=== PATIENT | female | born 1960 | race Caucasian/White ===

== ENCOUNTER 2016-10-25 10:00 | Emergency (ER) | payer OTHER ==
[~2016-10-25] VITALS: Ht 165.1 cm; Wt 90.7 kg
[2016-10-25] MEDS ORDERED: FLUORESCEIN SODIUM 1 MG STRIP OP ONE (10:30)
--- NOTE | 2016-10-25 10:30 | NUR ---
called dr. minaya for eye consult.
[2016-10-25] MEDS ORDERED: FLUORESCEIN SODIUM 1 MG STRIP ONE (10:32)
--- NOTE | 2016-10-25 11:00 | NUR ---
dr. minaya called back and talked to dr. hairston. pt wii be follow up with dr. marimar aguiar being d/c from er.
--- NOTE | 2016-10-25 11:07 | NUR ---
Patient discharged to home in stable conditon. Written and verbal after care instructions given. Patient verbalizes understanding of instructions.pt walks in steady gait.
== END 2016-10-25 11:11 | disposition home or self-care (01) ==
LOC: ER 10:01
DX: T15.01XA Foreign body in cornea, right eye, initial encounter (principal); I10 Essential (primary) hypertension; X58.XXXA Exposure to other specified factors, initial encounter; Y93.89 Activity, other specified; Y99.8 Other external cause status; Y92.89 Other specified places as the place of occurrence of the external cause; Z88.6 Allergy status to analgesic agent; Z88.8 Allergy status to other drugs, medicaments and biological substances
CPT/HCPCS: A4663